=== PATIENT | male | born 1970 | race Caucasian/White ===

== ENCOUNTER 2019-03-25 11:04 | Emergency (ER) | payer BC ==
--- NOTE | 2019-03-25 11:43 | EDM.PDOC ---
ED HPI GENERAL MEDICAL PROBLEM - General Chief Complaint: Gastrointestinal Problem Stated Complaint: BLOOD IN STOOL Time Seen by Provider: 03/25/19 11:15 - History of Present Illness INITIAL COMMENTS - FREE TEXT/NARRATIVE: Mr. Calles is a very pleasant 49-year-old man who states that his hemoglobin has been dropping over the past year, from an initial hemoglobin of 14, down to 10. He then took oral iron, and his hemoglobin jono to about 12. He has undergone 2 EGDs and 3 colonoscopies (most recently in January) in order to find the source, and according to both the patient and his , both have been negative, with the exception of the finding of colon polyposis, diverticular disease, and internal hemorrhoids. No history of peptic ulcer disease. The patient is scheduled for a camera endoscopy this coming 03/29/2019, in [place]. The patient now presents to the ED after having 3 nonbloody bowel movements this morning, followed by a 4th loose bloody bowel movement. He states that the blood was a combination of bright, dark, and black. No associated abdominal pain , however, the patient also reports that he has had right groin pain on and off for about 3 years. Prior evaluation included a CT scan, which was negative. He reports that the right groin pain was worse again yesterday. The patient denies recent fever, fatigue, chest pain, palpitations, dyspnea, nausea, vomiting, constipation, or urinary symptoms, such as dysuria, urinary urgency or frequency, or gross hematuria. He denies any recent lightheadedness. The patient's PCP is Dr. Chalino Bourgeois. His Wall Covering Contractor, whose name he does not recall, is out of [facility]. Right Lower Abdomen Pain Score (Numeric/FACES): 2 - Related Data Allergies Allergy/AdvReac Type Severity Reaction Status Date / Time No Known Allergies Allergy Verified 03/25/19 11:11 Home Meds: Home Meds Losartan [Cozaar] 50 mg PO DAILY 03/05/14 [History] Omeprazole [Prilosec] 20 mg PO DAILY 03/05/14 [History] amLODIPine Besylate [Amlodipine Besylate] 10 mg PO DAILY 03/05/14 [History] hydroCHLOROthiazide [Hydrochlorothiazide] 25 mg PO DAILY 03/05/14 [History] Fluticasone Propionate [Flonase] 1 spray KIERRA DAILY PRN 03/25/19 [History] Iron 18 mg PO DAILY 03/25/19 [History] Past Medical History Cardiovascular History: Reports: Hypertension Gastrointestinal History: Reports: Colon Polyp, Diverticulosis, GERD, Hemorrhoids (internal) Endocrine/Metabolic History: Reports: Obesity/BMI 30+ - Past Surgical History GI Surgical History: Reports: Colonoscopy (x 3), EGD (x 2), Other (See Below) ( Colon polypectomy) Neurological Surgical History: Reports: C-Spine (ACDF) Musculoskeletal Surgical History: Reports: Arthroscopic Knee (right) Social & Family History - Tobacco Use Smoking Status *Q: Current Every Day Smoker Years of Tobacco use: 35 Packs/Tins Daily: 1 - Caffeine Use Caffeine Use: Reports: None - Alcohol Use Alcohol Use History: Yes Alcohol Use Frequency: Daily (to excess) - Recreational Drug Use Recreational Drug Use: Yes Drug Use in Last 12 Months: No Recreational Drug Type: Reports: Cocaine (last snorted around 1994), Marijuana/ Hashish (last smoked 2000) - Living Situation & Occupation Living situation: Reports: , with Spouse Occupation: Employed (Business process owner) ED ROS GENERAL - Review of Systems Review Of Systems: ROS reveals no pertinent complaints other than HPI. ED EXAM, GI/ABD - Physical Exam Exam: See Below Exam Limited By: No Limitations General Appearance: Alert, WD/WN, No Apparent Distress Eyes: Bilateral: Normal Appearance, EOMI Ears: Normal External Exam, Hearing Grossly Normal Nose: Normal Inspection Throat/Mouth: Normal Inspection, Normal Lips, Normal Voice, No Airway Compromise Head: Atraumatic, Normocephalic Neck: Normal Inspection, Full Range of Motion Respiratory/Chest: No Respiratory Distress, Lungs Clear, Normal Breath Sounds, No Accessory Muscle Use Cardiovascular: Normal Peripheral Pulses, Regular Rate, Rhythm, No Edema, No Gallop, No JVD, No Murmur, No Rub GI/Abdominal Exam: Normal Bowel Sounds, Soft, Non-Tender (including the RLQ and LLQ), No Organomegaly, No Distention, No Abnormal Bruit, No Mass (Male) Exam: No Hernia, Normal Inspection Rectal (Males) Exam: Normal Exam, Normal Rectal Tone, Bloody Stool (bright red smear on the finger), Heme + Stool. No: Hemorrhoids (external) Back Exam: Normal Inspection, Full Range of Motion. No: CVA Tenderness (L), CVA Tenderness (R) Extremities: Normal Inspection, Normal Range of Motion, No Pedal Edema, Normal Capillary Refill Neurological: Alert, Oriented, Normal Cognition, No Motor/Sensory Deficits Psychiatric: Normal Affect Skin Exam: Warm, Dry, Intact, Normal Color, No Rash Course - Vital Signs Last Recorded V/S: Last Vital Signs Temp 36.6 C 03/25/19 11:08 Pulse 86 03/25/19 11:08 Resp 19 03/25/19 11:08 BP 158/100 H 03/25/19 11:08 Pulse Ox 98 03/25/19 11:08 Orthostatic Blood Pressure [ 130/94 Standing] Orthostatic Blood Pressure [ 135/87 Supine] - Orders/Labs/Meds Orders: Active Orders 24 hr Category Date Time Status Orthostatic Vital Signs [RC] STAT Care 03/25/19 11:38 Active Labs: Laboratory Tests 03/25/19 Range/Units 12:00 WBC 8.93 (4.23-9.07) K/mm3 RBC 4.87 (4.63-6.08) M/mm3 Hgb 11.7 L D (13.7-17.5) gm/dl Hct 36.7 L (40.1-51.0) % MCV 75.4 L (79.0-92.2) fl MCH 24.0 L (25.7-32.2) pg MCHC 31.9 L (32.2-35.5) g/dl RDW Std Deviation 49.7 H (35.1-43.9) fL Plt Count 362 H (163-337) K/mm3 MPV 8.6 L (9.4-12.3) fl Neut % (Auto) 64.8 (34.0-67.9) % Lymph % (Auto) 20.6 L (21.8-53.1) % [place] % (Auto) 9.7 (5.3-12.2) % Eos % (Auto) 3.6 (0.8-7.0) Baso % (Auto) 1.1 (0.1-1.2) % Neut # (Auto) 5.78 H (1.78-5.38) K/mm3 Lymph # (Auto) 1.84 (1.32-3.57) K/mm3 [place] # (Auto) 0.87 H (0.30-0.82) K/mm3 Eos # (Auto) 0.32 (0.04-0.54) K/mm3 Baso # (Auto) 0.10 H (0.01-0.08) K/mm3 - Re-Assessments/Exams Free Text/Narrative Re-Assessment/Exam: 03/25/19 11:39 On rectal examination, I found bright red blood on the finger that is Hemoccult positive. I explained to the patient that the only sure way to find the source of the bleeding is to undergo a colonoscopy, which is not possible from the emergency department, however, the brightness of the patient's blood suggests a lower source, consistent with an internal hemorrhoid, which he has been diagnosed with in the past. I suppose it is possible that it could be a diverticular bleed or a vascular anomaly, such as a telangiectasia or AV malformation, however, the patient states that he underwent a colonoscopy in January and was not told of any vascular anomalies being found, and one would expect a diverticular bleed to be more profound and persistent. For today's purposes, we will check orthostatics to make certain that the patient has not bled so much that he requires fluid or blood resuscitation, and we will check a CBC to make sure that his hemoglobin has not dropped so significantly that he requires a transfusion. 03/25/19 11:50 The patient is not orthostatic. 03/25/19 12:37 The patient's CBC is remarkable for a H/H mildly depressed at 11.7/36.7, and platelets mildly elevated at 362,000. The patient's anemia is microcytic and hypochromic. The patient's anemia is not so severe that PRBCs transfusion would be considered. The patient may safely be discharged home, to undergo the capsule endoscopy this coming 03/29/2019. Departure - Departure Time of Disposition: 12:41 Disposition: Home, Self-Care 01 Condition: Good Clinical Impression: Lower GI bleed - Discharge Information *PRESCRIPTION DRUG MONITORING PROGRAM REVIEWED*: Not Applicable *COPY OF PRESCRIPTION DRUG MONITORING REPORT IN PATIENT IRIS: Not Applicable Referrals: Chalino Bourgeois MD [Primary Care Provider] - Forms: ED Department Discharge Additional Instructions: You were seen in the emergency room after having a loose bloody bowel movement this morning. Workup in the ER included a CBC and positional blood pressure checks. Your CBC revealed your hemoglobin and hematocrit to be 11.7 and 36.7. A blood transfusion is not indicated. Your blood pressure maintained itself between lying and standing, indicating that you are not dehydrated. We recommend that you proceed with your previously scheduled camera endoscopy this coming 03/29/2019. If any change in your symptoms, including increased lower GI bleed, lightheadedness, or abdominal pain, please return to the ER for reevaluation. - My Orders Last 24 Hours: My Active Orders 03/25/19 11:38 Orthostatic Vital Signs [RC] STAT - Assessment/Plan Last 24 Hours: My Active Orders 03/25/19 11:38 Orthostatic Vital Signs [RC] STAT
== END 2019-03-25 12:53 | disposition home or self-care (01) ==
LOC: JD.ED 11:04
DX: K92.2 Gastrointestinal hemorrhage, unspecified (principal); K21.9 Gastro-esophageal reflux disease without esophagitis; I10 Essential (primary) hypertension; E66.9 Obesity, unspecified; F17.210 Nicotine dependence, cigarettes, uncomplicated; Z79.899 Other long term (current) drug therapy; Z68.35 Body mass index [BMI] 35.0-35.9, adult
CPT/HCPCS: 36415; 85025; 99284

== ENCOUNTER 2023-05-20 15:10 | Emergency (ER) | payer BC ==
[2023-05-20] MEDS ORDERED: Diltiazem 25 MG/5 ML SDV IVPUSH ONE ×4 (15:28→17:42)
[2023-05-20] MEDS ORDERED: Diltiazem 125 MG in Sodium Chloride 0.9% 100 ML IV SCH (15:30)
[2023-05-20] MEDS ORDERED: Sodium Chloride 0.9% 1,000 ML IV SCH (15:30)
[2023-05-20] MEDS ORDERED: Sodium Chloride 0.9% 0 ML ONE (15:34)
[2023-05-20 15:43] LABS: BASOPHILS ABSOLUTE AUTO 0.2 K/mm3 (0.0-0.2); BASOPHILS PERCENT AUTO 1.2 % (0.0-1.0); EOSINOPHILS ABSOLUTE AUTO 0.3 K/mm3 (0.0-0.4); EOSINOPHILS PERCENT AUTO 2.1 % (0.0-6.0); HEMATOCRIT 34.5 % (42.0-52.0); HEMOGLOBIN 10.7 gm/dl (14.0-18.0); IMMATURE GRAN ABSOLUTE AUTO 0.06 K/mm3 (0.00-0.05); IMMATURE GRAN PERCENT AUTO 0.4 % (0.0-0.4); LYMPHOCYTES ABSOLUTE AUTO 2.7 K/mm3 (1.0-4.8); LYMPHOCYTES PERCENT AUTO 18.6 % (24.0-44.0); MEAN CORPUSCULAR HEMOGLOBIN 20.9 pg (28.0-32.0); MEAN CORPUSCULAR VOLUME 67.5 fl (83.0-99.0); MEAN PLATELET VOLUME 9.3 fl (9.4-12.4); MONOCYTES ABSOLUTE AUTO 1.2 K/mm3 (0.0-0.8); MONOCYTES PERCENT AUTO 8.1 % (0.0-8.0); NEUTROPHILS ABSOLUTE AUTO 9.9 K/mm3 (1.8-7.7); NEUTROPHILS PERCENT AUTO 69.6 % (41.0-71.0); PLATELET COUNT,PLT 347 K/mm3 (150-400); RED BLOOD CELL COUNT 5.11 M/mm3 (4.52-5.90); WHITE BLOOD CELL COUNT,WBC 14.28 K/mm3 (3.9-11.3)
[2023-05-20 16:11] LABS: PROTHROMBIN TIME 9.8 SECONDS (9.7-12.0)
[2023-05-20 16:12] LABS: PTT,PARTIAL THROMBOPLSTIN TIME 20.7 SECONDS (21.7-31.4)
[2023-05-20 16:25] LABS: A/G RATIO 0.8 (1-2); ALBUMIN 3.6 g/dl (3.4-5.0); BILIRUBIN TOTAL 0.4 mg/dL (0.2-1.0); BUN/CREATININE RATIO 14.5 (14-18); C-REACTIVE PROTEIN 0.5 mg/dL (<1.0); CALCIUM 8.6 mg/dL (8.5-10.1); CREATININE 1.1 mg/dL (0.7-1.3); EST CRCL DRUG DOSING (CG) 86.76 mL/min; MAGNESIUM 1.4 mg/dL (1.8-2.4); TSH 1.987 uIU/mL (0.358-3.74); URIC ACID 6.7 mg/dL (3.5-7.2)
[2023-05-20 16:27] LABS: INR < 0.93
[2023-05-20 16:39] LABS: APPEARANCE,URINE CLEAR (Clear); BILIRUBIN,URINE NEGATIVE (Negative); COLOR,URINE YELLOW (Yellow); GLUCOSE,URINE NEGATIVE (Negative); KETONES,URINE NEGATIVE (Negative); LEUKOCYTE ESTERASE,URINE NEGATIVE (Negative); NITRITE,URINE NEGATIVE (Negative); OCCULT BLOOD,URINE NEGATIVE (Negative); PROTEIN,URINE 1+ (Negative); UROBILINOGEN,URINE 0.2 (0.2-1.0)
[2023-05-20 16:49] LABS: BARBITURATE SCREEN,URINE NEGATIVE (CUTOFF=200); BENZODIAZEPINES SCREEN,URINE NEGATIVE (CUTOFF=150); BUPRENORPHINE SCREEN,URINE NEGATIVE (CUTOFF=10); METHADONE SCREEN, URINE NEGATIVE (CUT0FF=200); METHAMPHETAMINES SCREEN, URINE NEGATIVE (CUTOFF=500); OXYCODONE SCREEN,URINE NEGATIVE (CUT0FF=100); THC SCREEN,URINE 20 NG/ML NEGATIVE (CUTOFF=50)
[2023-05-20 16:51] LABS: AMPHETAMINES SCREEN, URINE NEGATIVE (CUTOFF=500)
[2023-05-20 17:00] LABS: EPITHELIAL CELLS,URINE 0-5 /hpf (0-5); RBC,URINE 0-5 /hpf (0-5); WBC,URINE 0-5 /hpf (0-5)
[2023-05-20 17:01] LABS: BACTERIA,URINE FEW /hpf (FEW); MUCUS,URINE NOT SEEN /hpf (FEW)
[2023-05-20 17:05] LABS: IRON,FE 35 ug/dL (65-175); PERCENT FE SATURATION 8 % (20-55); TRANSFERRIN 367 mg/dL (202-364)
[2023-05-20 17:09] LABS: TOTAL IRON BINDING CAPACITY 459 ug/dL (100-400)
[2023-05-20] MEDS ORDERED: Magnesium Sulfate/Water 4 GM in Premix Bag 1 BAG IV ONE (17:45)
[2023-05-20] MEDS: Potassium Chloride 10 MEQ in Premix Bag 1 BAG IV SCH ×3 (18:36→20:52)
[2023-05-20] MEDS ORDERED: Nicotine 21 MG/24 Hr Patch TRDERM ONE (20:32)
[2023-05-20] MEDS ORDERED: Diltiazem 240 MG Cap.ER PO ONE (22:16)
== END 2023-05-20 22:41 | disposition home or self-care (01) ==
LOC: JD.ED 15:10
DX: I48.91 Unspecified atrial fibrillation (principal); I11.9 Hypertensive heart disease without heart failure; F17.210 Nicotine dependence, cigarettes, uncomplicated; E66.9 Obesity, unspecified; Z68.36 Body mass index [BMI] 36.0-36.9, adult
CPT/HCPCS: 36415; 71045; 80053; 80306; 81001; 82728; 83540; 83735; 83880; 84443; 84466; 84484; 84550; 85025; 85610; 85730; 86140; 93005; 96365; 96366; 96367; 96368; 96375; 96376; 99285; A9270; J1742; J3475; J3480; J3490; J7030; 93010; 99284